=== PATIENT | male | born 2000 | race Caucasian/White ===

== ENCOUNTER 2024-08-14 16:02 | Emergency (ER) | payer OTHER ==
[2024-08-14] MEDS: SODIUM CHLORIDE 0.9% 1,000 ML IV ONE (17:56)
[2024-08-14 21:34] VITALS: BP 109/80; PULSE 82; RESP 16; O2SAT 97
== END 2024-08-14 22:48 | disposition home or self-care (01) ==
LOC: EMS 16:02
DX: T40.2X1A Poisoning by other opioids, accidental (unintentional), initial encounter (principal); F41.9 Anxiety disorder, unspecified; F20.9 Schizophrenia, unspecified; F17.210 Nicotine dependence, cigarettes, uncomplicated; F15.90 Other stimulant use, unspecified, uncomplicated; Z59.41 Food insecurity; Z59.00 Homelessness unspecified; Y92.89 Other specified places as the place of occurrence of the external cause
CPT/HCPCS: 99283; Z7502